=== PATIENT | male | born 1985 | race Caucasian/White ===

== ENCOUNTER 2019-04-22 12:25 | Outpatient (CLI) | payer OTHER ==
[2019-04-22] MEDS ORDERED: BUFFERED LIDOCAINE 10 ML SYRINGE ONE (12:47)
[2019-04-22] MEDS ORDERED: IOTHALAMATE MEGLUMINE 50 ML VIAL ONE (12:48)
[2019-04-22] MEDS ORDERED: GADOBUTROL 10 MMOL/10 ML VIAL ONE (12:48)
[2019-04-22] MEDS ORDERED: IOTHALAMATE MEGLUMINE 50 ML VIAL IVP ONE (16:27)
[2019-04-22] MEDS ORDERED: GADOBUTROL 10 MMOL/10 ML VIAL IVP ONE (16:27)
[2019-04-22] MEDS ORDERED: BUFFERED LIDOCAINE 10 ML SYRINGE IU ONE (16:27)
--- NOTE | 2019-04-22 16:57 | MRI Report ---
Reason: PAIN IN LT SHOULDER, STIFFNESS OF LT SHOULDER Procedure Date: 04/22/2019 Accession Number: [id number] / [id number] Procedure: MRI - Arthrogram Shoulder LT CPT Code: Final Report FULL RESULT: EXAM: LEFT SHOULDER MRI ARTHROGRAM WITH CONTRAST EXAM DATE: 04/22/2019 02:30 PM. CLINICAL HISTORY: PAIN IN LT SHOULDER, STIFFNESS OF LT SHOULDER. COMPARISON: None. TECHNIQUE: Multiplanar, multisequence T1-weighted and fluid-sensitive sequences of the shoulder after an arthrographic injection of dilute gadolinium, dictated under a separate exam. Other: None. FINDINGS: Acromioclavicular Region: The acromion is type II. The acromioclavicular joint is unremarkable. There is no contrast or fluid in the subacromial/subdeltoid bursa. Glenohumeral Region: No subluxation. No loose bodies. The articular cartilage is unremarkable. The glenohumeral ligaments and joint capsule are unremarkable. Bone Marrow: There is a surgical anchor in the anterior humeral head subjacent to the subscapularis insertion, probably reflecting subscapularis repair. No bony lesion. No fracture. Labrum: The labrum is unremarkable. Surgical tracts are present in the inferior glenoid, probably reflecting labral repair. There are no signs of adjacent inferior labral tear. Biceps Tendon: The long head biceps tendon has either avulsed or been surgically released from the biceps anchor and has retracted distally. Biceps tenodesis has been performed at the level of the proximal humeral diaphysis. The axial images do not extend to this level; however, the sagittal images suggest the biceps tendon is probably contiguous distally from the site of tenodesis as seen on series 1001 image 9 and the tenodesis is probably intact. Musculature/Rotator Cuff: The supraspinatus, infraspinatus, and teres minor tendons are intact. The superior margin of the mid to distal subscapularis is thickened, probably tendinosis or sequela of the prior surgery. The remainder of the subscapularis is normal. No rotator cuff muscle belly atrophy or edema. Other: The subcutaneous tissues are unremarkable. IMPRESSION: 1. Postsurgical changes in the shoulder most likely reflecting distal subscapularis repair and long head biceps tenodesis. The subscapularis tendon is intact. The long head biceps tenodesis is incompletely characterized as the axial images do not extend to this level; however, the biceps tendon is probably intact distal to the site of tenodesis and there are no signs of tenodesis disruption. 2. Further postsurgical changes in the inferior glenoid probably reflecting labral repair. There are no signs of labral tear on today's study. 3. The remainder of the shoulder is unremarkable. The rotator cuff is intact. Articular cartilage is normal. RADIA
--- NOTE | 2019-04-22 17:24 | XRAY Report ---
Reason: PAIN IN LT SHOULDER, STIFFNESS OF LT SHOULDER Procedure Date: 04/22/2019 Accession Number: [id number] / [id number] Procedure: FL - Arthrogram Needle Placement CPT Code: Final Report FULL RESULT: EXAM: LEFT SHOULDER ARTHROGRAPHIC INJECTION WITH FLUOROSCOPIC GUIDANCE EXAM DATE: 04/22/2019 01:39 PM. CLINICAL HISTORY: PAIN IN LT SHOULDER, STIFFNESS OF LT SHOULDER. COMPARISON: None. TECHNIQUE: The risks, benefits, and alternatives of the procedure were discussed with the patient. All questions were answered. Written and verbal consent were obtained. The left glenohumeral joint was marked under fluoroscopy and prepped and draped in a sterile manner. Local anesthesia was performed with 1% lidocaine. A 22-gauge needle was then inserted into the left glenohumeral joint. 10 mL of a solution containing 25% 1% lidocaine, 25% iodinated contrast, and a 1:200 dilution of gadolinium contrast in sterile saline was then injected. The needle was then removed. Fluoroscopy Time: 29 seconds. Number of Images: 3. FINDINGS: Injection: Fluoroscopic images demonstrate needle placement and contrast in the left glenohumeral joint. No contrast extravasation outside of the glenohumeral joint. IMPRESSION: Successful fluoroscopically guided arthrographic injection of the left shoulder. Comment/Complication: After the procedure was completed the x-ray technologist had the patient sit on the fluoroscopy table while she went to get a wheelchair. When she returned to the fluoroscopy suite she found the patient on the floor and immediately summoned help. I was called to the fluoroscopy suite where the patient appeared pale and sweaty, but normally responsive, apparently having experienced a vasovagal episode. He complained of pain in his left leg where a small abrasion was present. He also complained of left neck/shoulder pain. A small scratch was noted on his left cheek. The patient was helped into a wheelchair and taken to MRI to complete his shoulder imaging. At the same time I went to the ER and spoke personally with Dr. Joel (around 1:45 PM) and explained what had happened and requested that the patient be evaluated before being discharged. The patient was taken to the emergency room waiting area after his MRI.Subsequently at 5 PM when the patient was still in the waiting area and had not been evaluated by the ER I again spoke with Dr. Joel about seeing the patient. I also spoke with the patient and apologized for the long wait. The patient understood that the emergency room was quite busy and was content to wait. [place]
== END 2019-04-22 12:26 | disposition home or self-care (01) ==
LOC: DI 12:25
PROVIDERS: ATTEND Orthopaedic Surgery
DX: M25.512 Pain in left shoulder (principal); M25.612 Stiffness of left shoulder, not elsewhere classified; Z98.890 Other specified postprocedural states; R55 Syncope and collapse; S80.812A Abrasion, left lower leg, initial encounter; M54.2 Cervicalgia; S00.81XA Abrasion of other part of head, initial encounter; R61 Generalized hyperhidrosis
CPT/HCPCS: 77002

== ENCOUNTER 2019-04-22 15:32 | Emergency (ER) | payer OTHER ==
[2019-04-22 15:52] VITALS: BP 122/83
--- NOTE | 2019-04-22 17:18 | ED Physician Documentation ---
History of Present Illness - Stated complaint Stated Complaint: FALL/LT NECK PX - Chief complaint Chief Complaint: General - History obtained from History obtained from: Patient - History of Present Illness Timing: Today (He was over an MRI, he had just gotten an arthroscopic injection for the MRI and he passed out and found himself on the floor. He has mild left greater than right neck pain. No other injuries.) Review of Systems Constitutional: reports: Reviewed and negative Cardiac: reports: Reviewed and negative Respiratory: reports: Reviewed and negative PD PAST MEDICAL HISTORY - Allergies Allergies/Adverse Reactions: Allergies Allergy/AdvReac Type Severity Reaction Status Date / Time No Known Drug Allergies Allergy Verified 04/22/19 15:49 PD ED PE NORMAL - Vitals Vital signs reviewed: Yes - General General: Alert and oriented X 3, No acute distress - HEENT HEENT: PERRL, EOMI - Neck Neck: Supple, no meningeal sign, No bony TTP, Other (FROM) - Cardiac Cardiac: RRR, No murmur - Respiratory Respiratory: No respiratory distress, Clear bilaterally - Abdomen Abdomen: Non tender - Neuro Neuro: Alert and oriented X 3, pallet sorter 2-12 intact, No motor deficit, No sensory deficit, Normal speech Eye Opening: Spontaneous Results - Vitals Vitals: Vital Signs - 24 hr 04/22/19 15:49 Temperature 36.7 C Heart Rate 82 Respiratory 14 Rate Blood Pressure 122/83 H O2 Saturation 98 Oxygen O2 Source Room air PD MEDICAL DECISION MAKING - ED course ED course: 33-year-old gentleman status post arthroscopic injection of the shoulder with a vasovagal episode injuring his neck, but he is nexus negative. Departure - Departure Disposition: 01 Home, Self Care Clinical Impression: Neck strain Qualifiers: Encounter type: initial encounter Qualified Code(s): S16.1XXA - Strain of muscle, fascia and tendon at neck level, initial encounter Condition: Good Record reviewed to determine appropriate education?: Yes Instructions: ED Sprain Strain Neck Comments: Return for new or worsening symptoms, [place]
== END 2019-04-22 17:31 | disposition home or self-care (01) ==
LOC: ED 15:32
DX: R55 Syncope and collapse (principal); S16.1XXA Strain of muscle, fascia and tendon at neck level, initial encounter; W19.XXXA Unspecified fall, initial encounter; Y92.538 Other ambulatory health services establishments as the place of occurrence of the external cause; M25.512 Pain in left shoulder; M25.612 Stiffness of left shoulder, not elsewhere classified; S80.812A Abrasion, left lower leg, initial encounter; S00.81XA Abrasion of other part of head, initial encounter; Z98.890 Other specified postprocedural states
CPT/HCPCS: 23350; 73222; 77002; 99281; 99284; A9585; Q9961

== ENCOUNTER 2021-05-14 09:08 | Outpatient (CLI) | payer OTHER ==
--- NOTE | 2021-05-14 09:43 | SLEEP CARE CONSULTATION ---
Information from patient questionnaire entered by Zahida Hidalgo MA. I have reviewed and concur with the information entered by Zahida Hidalgo MA. This document represents the service I personally performed and the decisions made by , Dina Sood ARNP. History of Present Illness Service Date and Time: 05/14/2021 0908 Reason for Visit: New patient (onset 04/2020, no priors) Chief Complaint: reports: Unrefreshed sleep, Snoring, Excessive daytime sleepiness, Observed pauses in breathing, Fatigue, Other Date of Onset: 1 YEAR APROX Usual bedtime: [id number] Time it takes to fall asleep: 10-30 MINUTES Snores at night: Yes Observed to quit breathing while asleep: Yes Number of times waking at night: 2-3 times a night Reasons for waking at night: reports: Pain (shoulder), Bathroom, Other (unknown reason). denies: Choking, Snoring, Gasping for air Toss, Turn, or Twitch while sleeping: Yes Recalls having dreams: Yes (NOT OFTEN) Usually gets out of bed at: 0500 Feels refreshed in the morning: No Morning headache: Yes (4-5 times a week; last less than an hour, no meds) Sleepy or fatigued during the day: Yes Ever fallen asleep while driving: No Takes day naps: No Dreams during day naps: No Prior sleep studies: No Additional HPI information: I had the pleasure of seeing BHUPENDRA GOODMAN today regarding the possibility of him having a sleep disorder. His current complaints are observed pauses in breath ing, excessive daytime sleepiness, fatigue, snoring and unrefreshed sleep. He states he wakes up more tired than when he went to bed. He said about a year ago he has shoulder surgery and was told he stopped breathing when asleep and should get it checked out. - Parasomnia Symptoms Ever been unable to move upon waking from sleep: No Walks in sleep: No Talks in sleep: No Ever acted out dreams in sleep: No Ever felt weak in the knees when startled or emotional: No Bothered by creepy, crawly, restless sensations in legs: No Problems with memory or concentration: Yes (mostly concentration) Subjective Initial [place] Sleepiness Scale score: 20 (2022) Past Medical History Past Medical History: reports: Hypertension, Arrythmia (premature ventricular contractions), GERD Social History The patient's occupation is a ACTIVE [employer]UTY. Patient is Single and lives in [place]. Have you smoked in the past 12 months: No Alcohol use: No Caffeine use: Yes Caffeine amount and frequency: 1 X DAILY Family History Family history of sleep disordered breathing: Yes Family Hx Sleep Apnea: Mother: Snoring, Sleep apnea - Treated Allergies and Home Medications Drug allergies reviewed: Yes (NKDA) Home medication list reviewed: Yes Allergy and home medication list: Diltiazem Celebrex Zyrtec Review of Systems Weight gain over past 5 years: 40-50 Cardiovascular: reports: high blood pressure, palpitations, other (premature ventricular contractions) Respiratory: reports: shortness of breath, chronic cough Gastrointestinal: reports: heartburn, abdominal pain Neurological: reports: headaches Ear/Nose/Throat: reports: nasal congestion, dry mouth/throat, tonsillectomy, wisdom teeth removed Endocrine: reports: sluggishness, increased appetite Musculoskeletal: reports: joint pain, muscle pain or cramping Immunologic: reports: allergies to food or environment Physical Exam Vital signs obtained and entered by: COLE PRICE Blood Pressure: 153/112 (RIGHT, PULSE 76, RESP 16,) Heart Rate: 74 O2 Saturation: 95 (2 MASKS CLOTHE ND PAPER) Height: 6 ft 4 in Weight: 330 lb (WITH CLOTHES) Body Mass Index: 40.1 BMI Classification: Morbidly Obese Neck circumference: 18.5 (inches) Mouth and throat: narrow oropharynx Soft palate: long Hard palate: normal Uvula: normal Uvula visualization: 50% Mallampati Class II Tongue: enlarged in size with teeth yadav on lateral edges Tonsils: absent bilaterally Neck: normal w/o lymphadenopathy or thyromegaly Heart: regular rate and rhythm Lungs: clear bilaterally Impression and Plan 1. Suspected Obstructive Sleep Apnea-Hypopnea Syndrome, as suggested by a history of loud and irregular snoring, observed cessation of breath while asleep, morning headache, unrefreshed sleep, cognitive impairment, and excessive daytime sleepiness. Narrow oropharynx and obesity are common predisposing factors for obstructive sleep apnea-hypopnea syndrome. I recommend proceeding to polysomnography to confirm the diagnosis and to assess severity. If the patient has significant sleep disordered breathing, a manual CPAP titration study will also be performed to find the optimal treatment pressure. I informed the patient of what the sleep studies involve and after some discussion, obtained agreement to proceed. The pathophysiology of obstructive sleep apnea-hypopnea syndrome was discussed with the patient and health risks of cardiovascular and cerebrovascular disease if not treated. AASM brochure for obstructive sleep apnea-hypopnea syndrome given and reviewed. Risks of drowsy driving discussed in detail and patient advised to avoid long distance driving and to tobacco sample puller at the first sign of drowsiness. Patient agreed to plan. * Schedule polysomnography +- manual CPAP titration study and return in 1-2 weeks after the study to discuss result and initiate therapy. * Avoid long distance driving or driving when feeling sleepy. * Avoid alcohol, sedative and muscle relaxant around bedtime. * Attempt to lose weight. * Review instructions provided by trained office staff on how to prepare for the sleep study. * Return for follow-up after sleep study completed. Counseling Topics: Weight loss health impact Visit Type: In Office Time Spent with Patient (minutes): 30 Provider Statement: I spent 100% of the Face to Face Visit with the patient with greater than 50% spent counseling the patient and coordination of care.
[2021-05-14 09:44] VITALS: BP 153/112
== END 2021-05-14 09:09 | disposition home or self-care (01) ==
LOC: SC 09:08
PROVIDERS: ATTEND Nurse Practitioner Family
DX: R06.83 Snoring (principal); G47.8 Other sleep disorders; R06.81 Apnea, not elsewhere classified; G47.10 Hypersomnia, unspecified; R53.83 Other fatigue; R51.9 Headache, unspecified; I10 Essential (primary) hypertension; I49.3 Ventricular premature depolarization; E66.01 Morbid (severe) obesity due to excess calories; Z68.41 Body mass index [BMI] 40.0-44.9, adult
CPT/HCPCS: 99203; 99212

== ENCOUNTER 2021-05-21 14:18 | Outpatient (CLI) | payer OTHER | END 2021-05-21 14:19 | disposition home or self-care (01) | LOC: SC 14:18 | PROVIDERS: ATTEND Nurse Practitioner Family | DX: G47.33 Obstructive sleep apnea (adult) (pediatric) (principal); R09.02 Hypoxemia | CPT/HCPCS: 95806 ==

== ENCOUNTER 2021-06-08 16:00 | Outpatient (CLI) | payer OTHER ==
[2021-06-08 16:42] VITALS: BP 130/72
--- NOTE | 2021-06-08 16:42 | SLEEP CARE CONSULTATION ---
Information from patient questionnaire entered by Zahida Beauchamp MA. I have reviewed and concur with the information entered by Zahida Beauchamp MA. This document represents the service I personally performed and the decisions made by , Dina Sood ARNP. History of Present Illness Service Date and Time: 06/08/2021 1600 Initial [place] Sleepiness Scale score: 20 (2021) Current [place] Sleepiness Scale score: 16 (2021) Additional HPI information: BHUPENDRA GOODMAN returns for follow up and results of the recently performed home sleep study. I explained the pathophysiology behind obstructive sleep apnea. We then spent quite a bit of time discussing different treatment options. For mild obstructive sleep apnea, surgery and oral appliance are alternatives to nasal CPAP therapy but in moderate or severe cases, nasal CPAP is the most effective and reliable treatment. Because apnea is primarily in supine position, then positional management therapy could be effective. Methods discussed such as positioning with pillows, using a T-shirt with tennis balls in the back, and shown commercial products that have a pillow format on back to prevent supine sleep. I reviewed the impact of weight changes on sleep apnea and strongly recommended losing weight. After some discussion, the patient opted to go with the nasal CPAP therapy. Nasal autoCPAP set at 4-15 cmH20 will be ordered with rationale explained. A manual titration study will be ordered if unable to find optimal pressure with office adjustments. I explained how CPAP machine works and what to expect when using the machine. Using CPAP every night in order to get used to it was emphasized. Patient advised to put CPAP mask on before getting into bed so as not to fall asleep without CPAP. To assist acclimation to CPAP use, it could also be used for a short time during day while reading or watching TV. The patient was instructed to call the CPAP supplier to discuss any mechanical problem that may occur. If the mask given is uncomfortable or is difficult to keep on through the night even with adjustment, contact the CPAP supplier as many will replace with another mask style if notified before 30 days. If snoring or perceives is not getting enough air or too much air from the machine, notify this office. AAS patient education PAP tips reviewed and given to patient. Patient does not drink alcohol. Patient was cautioned about risks of drowsy driving until sleepiness symptoms resolve. Patient denies drowsy driving. Sleep Study - Results Type of Sleep Study: Home sleep study (F/U HOME STUDY RESULTS) Prior sleep studies: No Polysomnography/Home Sleep Study results: Physician Impression: The quality of the study is good. The length of the study is adequate (> 240 minutes). Please also see the tabulated and graphic data. 1. Obstructive Sleep Apnea-Hypopnea (ICD-10 G47.33), mild, with an AHI of 13.9/hr and jean SaO2 of 84%. During the study, the patient had 17 apneas (17 obstructive, 0 central, 0 mixed) and 84 hypopneas. The longest episode lasted 82.0 seconds. The respiratory events occurred more frequently during supine sleep (supine AHI was 35.7 and non-supine, 11.99). 2. Hypoxemia (ICD-10 R09.02), mild, with the lowest oxygen saturation of 84 % and 15.3 minutes with SaO2 under 90%. Baseline oxygen saturation was normal (Average oxygen saturation was 93%). Allergies and Home Medications Known drug allergies: No Drug allergies reviewed: Yes Home medication list reviewed: Yes (no changes) Allergy and home medication list: Allergies No Known Drug Allergies Allergy (Verified 04/22/19 15:49) Review of Systems Review of systems same as previous: Yes (no changes) Physical Exam Vital signs obtained and entered by: Hari BEAUCHAMP CMA, AAMA Blood Pressure: 130/72 (RIGHT, PULSE 89, RESP 16,) Cuff size: wrist Heart Rate: 82 O2 Saturation: 96 (PAPER MASK) Height: 6 ft 4 in Weight: 338 lb Body Mass Index: 41.1 BMI Classification: Morbidly Obese Impression and Plan 1. Obstructive Sleep Apnea-Hypopnea Syndrome, mild, with lowest oxygen saturation of 84%. Obviously this is the cause of the patients symptoms of unrefreshed sleep, and excessive daytime sleepiness. Positive pressure therapy could benefit hypertension, arrhythmia and gastric reflux. As mentioned above, the patient will be started on nasal autoCPAP therapy with pressure set at 4-15 cmH2O. A manual titration study will be completed if unable to find optimal treatment pressure with office adjustments. Compliance guidelines also reviewed. A copy of compliance guidelines will be given for reference at check out. Because the apnea is more severe supine, I instructed to avoid sleeping supine using pillow positioning until able to start CPAP use. 2. Hypoxemia, mild, with the lowest oxygen saturation of 84 % and 15.3 minutes with SaO2 under 90%. His baseline oxygen saturation was normal with an average oxygen saturation of 93%. * Nasal auto CPAP therapy, pressure at 4-15 cm H2O. * Attempt to lose weight. * Avoid alcohol consumption near bedtime. * Avoid supine sleep until using CPAP. * The patient is again cautioned about driving until sleepiness completely resolves. * Return one month after CPAP obtained. I will assess response to therapy and compliance at that time. Counseling Topics: Weight loss health impact Visit Type: In Office Time Spent with Patient (minutes): 20 Provider Statement: I spent 100% of the Face to Face Visit with the patient with greater than 50% spent counseling the patient and coordination of care.
== END 2021-06-08 16:01 | disposition home or self-care (01) ==
LOC: SC 16:00
PROVIDERS: ATTEND Nurse Practitioner Family
DX: G47.33 Obstructive sleep apnea (adult) (pediatric) (principal); E66.01 Morbid (severe) obesity due to excess calories; Z68.41 Body mass index [BMI] 40.0-44.9, adult
CPT/HCPCS: 99212; 99213

== ENCOUNTER 2021-08-25 13:25 | Outpatient (CLI) | payer OTHER ==
[2021-08-25 13:59] VITALS: BP 129/74
--- NOTE | 2021-08-25 13:59 | SLEEP CARE CONSULTATION ---
Information from patient questionnaire entered by Zahida Hidalgo MA. I have reviewed and concur with the information entered by Zahida Hidalgo MA. This document represents the service I personally performed and the decisions made by , Dina Sood ARNP. History of Present Illness Service Date and Time: 08/25/2021 1325 Previous diagnosis: Mild, Obstructive Sleep Apnea-Hypopnea Syndrome AHI: 13.9 (in 2021) Reason for follow up: first compliance (06/21/21 SET UP, RESMED,) Equipment type: CPAP Equipment obtained from: Other ([facility]; got inital supplies) Mask style: Full face Mask brand: Resmed ([id number]) Backup mask available: Yes (other mask) Last cushion change: less than month Prior sleep studies: No Type of Sleep Study: Home sleep study (F/U HOME STUDY RESULTS) HPI additional information: BHUPENDRA GOODMAN was diagnosed to have mild, AHI 13.9, obstructive sleep apnea- hypopnea syndrome and returned today for CPAP therapy first compliance follow- up. Sleep Study - Results Type of Sleep Study: Home sleep study (F/U HOME STUDY RESULTS) Prior sleep studies: No CPAP Compliance Data - Data Reviewed with Patient Average duration of nightly device use: 4 HOURS 43 MINUTES Compliance rate %: 87 Current pressure setting (cmH2O): 4-15 (median 4.7, avg 6.5, max 7.4) Average residual AHI: 1.2 Central apnea: .1 Obstructive apnea: .2 Average large leak: 10.5 Subjective Missed days of use due to: reports: illness (COVID, ), travel ([place], ) Patient concerns: reports: air blowing in eyes (just needs to adjust mask, with improvement). denies: aerophagia, mask discomfort, mask leak noise, condensation in mask/hose, nasal congestion, dry mouth, nose, throat, epistaxis, other Observed to snore while using device: No Current pressure setting perceived as: comfortable On therapy, patient: reports: sleeping better, awakening more refreshed, being more awake and alert during the day, more rested overall. denies: drowsiness while driving Initial [place] Sleepiness Scale score: 20 (2021) Current [place] Sleepiness Scale score: 10 Allergies and Home Medications Home medication list reviewed: Yes (Claritin) Allergy and home medication list: Allergies No Known Drug Allergies Allergy (Verified 04/22/19 15:49) Review of Systems Review of systems same as previous: Yes (no changes) Physical Exam Vital signs obtained and entered by: COLE PRIEC Blood Pressure: 129/74 (RESP 16, PULSE 74, RIGHT,) Heart Rate: 74 O2 Saturation: 98 (PAPER MASK) Height: 6 ft 4 in Weight: 330 lb (PT CLOTHES ) Weight change since last visit: 8 lb loss Body Mass Index: 40.1 BMI Classification: Morbidly Obese Impression and Plan 1. Obstructive Sleep Apnea-Hypopnea Syndrome, mild, with good treatment compl iance and good apnea control. On CPAP therapy, the patient has better sleep quality and is more rested overall. The patients pressure will be changed to autoCPAP 5-8 cmH20 to reflect the pressures being used. Patient advised to contact me if pressure change is uncomfortable so that it can be adjusted. Goals for apnea control discussed. Patient denies problems with oral dryness, nasal congestion, epistaxis, skin irritation or aerophagia. Patient's apnea severity and rationale for treatment to reduce apnea, improve sleep quality and reduce cardiovascular and cerebrovascular events was reviewed. I also reviewed the benefit of consistent device use of CPAP for hypertension, arrhythmia and gastric reflux. 2. Obesity, unspecified. Patient has lost weight. Currently patients BMI is 40.1. Obesity increases the risk of apnea, CPAP pressure requirements and overall health risks especially cardiovascular and diabetes. Thus patient is advised to continue to try to lose weight. Weight loss can be done with reducing portion size, reducing refined foods and balancing content with vegetables, fruit and whole grain foods. In addition, patient encouraged to get regular exercise. The patient's CPAP pressure range should accommodate some weight loss. Symptoms to report for additional pressure adjustment discussed. * Change auto CPAP pressure to 5-8 cmH2O * Notify me if snoring with mask or feeling that the pressure is too much or too little * Attempt to lose weight * Call this office if any problems using CPAP * Return for follow up in 1-2 months, or sooner if concerns arise Counseling Topics: Spare mask, Weight loss health impact Visit Type: In Office Time Spent with Patient (minutes): 20 Provider Statement: I spent 100% of the Face to Face Visit with the patient with greater than 50% spent counseling the patient and coordination of care.
== END 2021-08-25 13:26 | disposition home or self-care (01) ==
LOC: SC 13:25
PROVIDERS: ATTEND Nurse Practitioner Family
DX: G47.33 Obstructive sleep apnea (adult) (pediatric) (principal); E66.01 Morbid (severe) obesity due to excess calories; Z68.41 Body mass index [BMI] 40.0-44.9, adult
CPT/HCPCS: 99212; 99213

== ENCOUNTER 2021-10-07 09:24 | Outpatient (CLI) | payer OTHER ==
[2021-10-07 10:04] VITALS: BP 120/80
--- NOTE | 2021-10-07 10:04 | SLEEP CARE CONSULTATION ---
Information from patient questionnaire entered by Zahida Hidalgo MA. I have reviewed and concur with the information entered by Zahida Hidalgo MA. This document represents the service I personally performed and the decisions made by , Dina Sood ARNP. History of Present Illness Service Date and Time: 10/07/2021 0924 Previous diagnosis: Mild, Extremely Severe, Obstructive Sleep Apnea-Hypopnea Syndrome AHI: 13.9 (in 2021) Reason for follow up: other (6 WEEL F/U, PRESSURE CHANGE, RESMED, LEON 06/21/21,) Equipment type: CPAP Equipment obtained from: Other ([facility]; getting supplies) Mask style: Full face Mask brand: Respironics ([employer]) Backup mask available: Yes (other mask) Last cushion change: last week Prior sleep studies: No Type of Sleep Study: Home sleep study (F/U HOME STUDY RESULTS) HPI additional information: BHUPENDRA GOODMAN was diagnosed to have mild, AHI 13.9, obstructive sleep apnea- hypopnea syndrome and returned today for CPAP therapy 6 week with pressure change follow-up. Sleep Study - Results Type of Sleep Study: Home sleep study (F/U HOME STUDY RESULTS) Prior sleep studies: No CPAP Compliance Data - Data Reviewed with Patient Average duration of nightly device use: 3 HOURS 5 MINUTES Compliance rate %: 33 (08/22/21-10/05/21; 45 days; 41/45 days used) Humidity settin-8 Average residual AHI: 0.9 Central apnea: .1 Obstructive apnea: .1 Hypopnea: .7 Average large leak: 1.2 Subjective Missed days of use due to: reports: family emergency, mask issues, other (WHEN HOT IN HOUSE MASK SWEATS ON FACE) Patient concerns: reports: other. denies: aerophagia, mask discomfort, air blowing in eyes, mask leak noise, condensation in mask/hose, nasal congestion, dry mouth, nose, throat, epistaxis Observed to snore while using device: No Current pressure setting perceived as: comfortable On therapy, patient: reports: sleeping better, awakening more refreshed, being more awake and alert during the day, more rested overall. denies: drowsiness while driving Initial [place] Sleepiness Scale score: 20 (2021) Current [place] Sleepiness Scale score: 9 (10/07/2021) Allergies and Home Medications Home medication list reviewed: Yes (no changes) Allergy and home medication list: Allergies No Known Drug Allergies Allergy (Verified 04/22/19 15:49) Review of Systems Review of systems same as previous: Yes (no changes) Physical Exam Vital signs obtained and entered by: [facility] Blood Pressure: 120/80 (RESP 18, PULSE 66, RIGHT) Cuff size: wrist Heart Rate: 76 O2 Saturation: 96 Height: 6 ft 4 in Weight: 335 lb (CLOTHES) Weight change since last visit: RIDING A BIKE, WATCHING PORTION, TRYING TO LOSE. Body Mass Index: 40.7 BMI Classification: Morbidly Obese Impression and Plan 1. Obstructive Sleep Apnea-Hypopnea Syndrome, mild, with fair treatment compliance and good apnea control. On CPAP therapy, the patient has better sleep quality and is more rested overall. Patient had difficulty with the temperature getting warmer with sweating between the material of the mask and his skin. It caused his mask to move on his face and be uncomfortable. This limited his ability to continue wearing his mask at night even though he likes using his CPAP. He has turned off the humidifier and that has improved the sweating. I gave him a pamphlet from [employer] information for skin barriers that he could get to go between the mask material in his skin to reduce sweating. He voiced understanding and will try these. He had a family emergency which also reduced time in his mask. Patient's apnea severity and rationale for treatment to reduce apnea, improve sleep quality and reduce cardiovascular and cerebrovascular events was reviewed. I also reviewed the benefit of consistent device use of CPAP for hypertension, arrhythmia, and gastric reflux. 2. Obesity, unspecified. Currently patients BMI is 40.7. Obesity increases the risk of apnea, CPAP pressure requirements and overall health risks especially cardiovascular and diabetes. Thus patient is advised to continue to try to lose weight. Weight loss can be done with reducing portion size, reducing refined foods and balancing content with vegetables, fruit and whole grain foods. In addition, patient encouraged to get regular exercise. Patient received a exercise bike 2 weeks ago and has been using it regularly since then.He is also trying to watch his portion sizes. * Continue auto CPAP pressure at 5-8 cmH2O * Notify me if snoring with mask or feeling that the pressure is too much or too little * Attempt to lose weight * Call this office if any problems using CPAP * Return for follow up in 3 months, or sooner if concerns arise Counseling Topics: Spare mask, Weight loss health impact Visit Type: In Office Time Spent with Patient (minutes): 20 Provider Statement: I spent 100% of the Face to Face Visit with the patient with greater than 50% spent counseling the patient and coordination of care.
== END 2021-10-07 09:25 | disposition home or self-care (01) ==
LOC: SC 09:24
PROVIDERS: ATTEND Nurse Practitioner Family
DX: G47.33 Obstructive sleep apnea (adult) (pediatric) (principal); E66.01 Morbid (severe) obesity due to excess calories; Z68.41 Body mass index [BMI] 40.0-44.9, adult
CPT/HCPCS: 99212; 99213